=== PATIENT | female | born 1995 | race Caucasian/White ===

== ENCOUNTER 2023-03-05 23:38 | Emergency (ER) | payer BC ==
[~2023-03-05] VITALS: Ht 157.5 cm; Wt 56.7 kg
[2023-03-06 01:49] VITALS: BP 106/65
== END 2023-03-06 04:37 | disposition home or self-care (01) ==
LOC: ER 23:38
DX: F10.129 Alcohol abuse with intoxication, unspecified (principal)
CPT/HCPCS: 99284